=== PATIENT | female | born 1965 | race Caucasian/White ===

== ENCOUNTER 2022-06-30 16:35 | Emergency (ER) | payer BC ==
[~2022-06-30] VITALS: Ht 162.6 cm; Wt 63.5 kg
--- NOTE | 2022-06-30 16:40 | NUR ---
Dr Fish at the bedside for MSE.
[2022-06-30] MEDS ORDERED: ONDANSETRON 4 MG/2 ML VIAL ONE (16:54)
[2022-06-30] MEDS ORDERED: IV NORMAL SALINE 1000 ML BAG IV ONE (17:00)
[2022-06-30] MEDS ORDERED: ONDANSETRON 4 MG/2 ML VIAL IV ONE (17:00)
[2022-06-30 17:04] LABS: MEAN CORPUSCULAR HEMOGLOBIN 24.8 uug (24.7-32.8); MEAN CORPUSCULAR VOLUME 76.8 fL (75.5-95.3); PLATELET COUNT (AUTO) 220 K/uL (179-408)
[2022-06-30 17:17] LABS: BILIRUBIN,DIRECT 0.1 mg/dL (0.0-0.2); BILIRUBIN,TOTAL 0.4 mg/dL (0.2-1.0); CREATININE 0.8 mg/dL (0.6-1.3); POTASSIUM 3.5 mmol/L (3.5-5.1); TOTAL PROTEIN, SERUM 6.6 g/dL (6.4-8.2)
[2022-06-30] MEDS ORDERED: FAMOTIDINE. 20 MG/2 ML VIAL IV ONE ×2 (18:00→18:12)
[2022-06-30] MEDS ORDERED: ONDA4TAB5 PO (18:08)
[2022-06-30] MEDS ORDERED: FAMO-132 PO (18:08)
--- NOTE | 2022-06-30 18:25 | NUR ---
Pt states feeling better and no longer nauseous.
[2022-06-30 18:35] VITALS: BP 110/60
--- NOTE | 2022-06-30 18:35 | NUR ---
IV removed. Catheter intact and site benign. Pressure and 4x4 gauze applied to site. No bleeding noted.
--- NOTE | 2022-06-30 18:37 | NUR ---
IV removed. Catheter intact and site benign. Pressure and 4x4 gauze applied to site. No bleeding noted.
== END 2022-06-30 18:37 | disposition home or self-care (01) ==
LOC: ER 16:35
DX: K52.9 Noninfective gastroenteritis and colitis, unspecified (principal)
CPT/HCPCS: 36415; 83690; 85025; A4663; J2405; J3490; J7040

== ENCOUNTER 2023-01-02 07:08 | Outpatient (CLI) | payer BC, OTHER ==
[~2023-01-02 07:08] MED LIST: FAMO-132 PO; ONDA4TAB5 PO
[2023-01-02 07:36] LABS: HEMATOCRIT 38.1 % (31.2-41.9); MEAN CORPUSCULAR HEMOGLOBIN 25.5 uug (24.7-32.8); MEAN CORPUSCULAR VOLUME 81.4 fL (75.5-95.3); PLATELET COUNT (AUTO) 282 K/uL (179-408)
[2023-01-02 08:26] LABS: BILIRUBIN,TOTAL 0.4 mg/dL (0.2-1.0); CREATININE 0.6 mg/dL (0.6-1.3); MAGNESIUM 2.3 mg/dL (1.8-2.4); PHOSPHOROUS 3.8 mg/dL (2.5-4.9); TOTAL PROTEIN, SERUM 7.2 g/dL (6.4-8.2)
[2023-01-02 08:28] LABS: THYROID STIMULATING HORMONE 2.157 mIU/mL (0.358-3.740)
[2023-01-02 09:06] LABS: URIC ACID 3.6 mg/dL (2.6-6.0)
[2023-01-02 13:24] LABS: *BILIRUBIN,URIN NEGATIVE (NEGATIVE); *BLOOD, URINE NEGATIVE (NEGATIVE); *CLARITY,URINE CLEAR (CLEAR); *COLOR,URINE YELLOW (YELLOW); *KETONES,URINE NEGATIVE (NEGATIVE); *UROBILINOGEN,URINE 0.2 E.U./dl (NORMAL); LEUKOCYTE ESTERASE ,URINE 1+ (NEGATIVE); NITRITE, URINE NEGATIVE (NEGATIVE); UGLUCOSE NEGATIVE (NEGATIVE)
[2023-01-02 14:26] LABS: BACTERIA,URINE FEW /HPF (NONE SEEN); RBC,URINE NONE SEEN /HPF (0-3); SQUAMOUS EPITHELIAL CELL,UR FEW /HPF (NONE SEEN)
== END 2023-01-02 23:59 | disposition home or self-care (01) ==
LOC: LAB 07:08
PROVIDERS: ATTEND Legal Medicine
DX: Z00.00 Encounter for general adult medical examination without abnormal findings (principal); R53.1 Weakness; E11.9 Type 2 diabetes mellitus without complications; E78.00 Pure hypercholesterolemia, unspecified; I10 Essential (primary) hypertension; E55.9 Vitamin D deficiency, unspecified; D64.9 Anemia, unspecified; E03.9 Hypothyroidism, unspecified
CPT/HCPCS: 36415; 82525; 82746; 83550; 83735; 84100; 84207; 84443; 84550; 84630; 85025; 85651; 86140

== ENCOUNTER 2023-07-22 12:35 | Emergency (ER) | payer BC, OTHER ==
[~2023-07-22] VITALS: Ht 162.6 cm; Wt 65.8 kg
[2023-07-22 12:48] VITALS: O2SAT 98
[2023-07-22] MEDS ORDERED: KETOROLAC TROMETHAMINE 15 MG INJ IVP ONE (13:15)
[2023-07-22] MEDS ORDERED: METOCLOPRAMIDE HCL 10 MG/2 ML VIAL IV ONE (13:15)
[2023-07-22] MEDS ORDERED: IV NORMAL SALINE 1000 ML BAG IV ONE (13:15)
[2023-07-22] MEDS ORDERED: KETOROLAC TROMETHAMINE 15 MG INJ ONE (13:22)
[2023-07-22] MEDS ORDERED: METOCLOPRAMIDE HCL 10 MG/2 ML VIAL ONE (13:23)
[2023-07-22 13:48] LABS: BASOPHILS % (AUTO) 0.7 % (0.0-2.0); DIFFERENTIAL COMMENT 0; EOSINOPHILS % (AUTO) 0.8 % (0.0-7.0); HEMATOCRIT 35.7 % (31.2-41.9); HEMOGLOBIN 11.4 g/dL (10.9-14.3); LYMPHOCYTES # (AUTO) 1.3 K/uL (0.8-4.8); MEAN CORPUSCULAR HEMOGLOBIN 25.2 uug (24.7-32.8); MEAN CORPUSCULAR HGB CONC 32 g/dL (32.3-35.6); MEAN CORPUSCULAR VOLUME 79.1 fL (75.5-95.3); MONOCYTES # (AUTO) 0.4 K/uL (0.1-1.30); MONOCYTES % (AUTO) 10.1 % (0.0-11.0); NEUTROPHILS # (AUTO) 2.4 K/uL (1.8-8.9); NEUTROPHILS % (AUTO) 57.4 % (38.5-71.5); PLATELET COUNT (AUTO) 252 K/uL (179-408); RED BLOOD CELL COUNT(AUTO) 4.52 MIL/uL (3.63-4.92); RED CELL DISTRIBUTION WIDTH 16.3 % (12.3-17.7); WHITE BLOOD COUNT (AUTO) 4.2 K/uL (3.8-11.8)
[2023-07-22 13:49] LABS: CALCIUM 8.9 mg/dL (8.5-10.1); CREATININE 0.8 mg/dL (0.6-1.3); POTASSIUM 3.7 mmol/L (3.5-5.1)
[2023-07-22 13:55] LABS: ALBUMIN 3.1 g/dL (3.4-5.0); BILIRUBIN,DIRECT 0.1 mg/dL (0.0-0.2); BILIRUBIN,TOTAL 0.3 mg/dL (0.2-1.0); TOTAL PROTEIN, SERUM 6.4 g/dL (6.4-8.2)
[2023-07-22 14:15] LABS: *BLOOD, URINE NEGATIVE (NEGATIVE); *CLARITY,URINE CLEAR (CLEAR); *COLOR,URINE YELLOW (YELLOW); *KETONES,URINE NEGATIVE (NEGATIVE); *PROTEIN,URINE NEGATIVE (NEGATIVE); *UROBILINOGEN,URINE 0.2 E.U./dl (NORMAL); LEUKOCYTE ESTERASE ,URINE NEGATIVE (NEGATIVE); NITRITE, URINE NEGATIVE (NEGATIVE); PH,URINE 5.5 (5.0-8.0); UGLUCOSE NEGATIVE (NEGATIVE)
[2023-07-22 14:20] LABS: *BILIRUBIN,URIN 1+ (NEGATIVE)
[2023-07-22 14:34] LABS: BACTERIA,URINE FEW /HPF (NONE SEEN); SQUAMOUS EPITHELIAL CELL,UR FEW /HPF (NONE SEEN); WBC,URINE 0-3 /HPF (0-3)
[2023-07-22 14:35] LABS: MUCUS,URINE MODERATE /LPF (0-FEW)
[2023-07-22] MEDS ORDERED: CIPR-262 PO (14:36)
[2023-07-22] MEDS ORDERED: METR500T PO (14:36)
== END 2023-07-22 14:49 | disposition home or self-care (01) ==
LOC: ER 12:37
DX: K90.2 Blind loop syndrome, not elsewhere classified (principal); Z79.2 Long term (current) use of antibiotics; Z79.899 Other long term (current) drug therapy
CPT/HCPCS: 99285; 74176; 96374; 96361; 96375; 80076; 80048; 81001; 83690; 85025; 36415; J1885; J2765; J7040; A4663

== ENCOUNTER 2023-09-14 07:16 | Day surgery (SDC) | payer BC, OTHER ==
[~2023-09-14 07:16] MED LIST changes: +CIPR-262 PO; +METR500T PO
[2023-09-14 11:50] VITALS: TEMP 97.9
== END 2023-09-14 11:50 | disposition home or self-care (01) ==
LOC: DS 07:16
PROVIDERS: ATTEND Internal Medicine Gastroenterology
DX: Z12.11 Encounter for screening for malignant neoplasm of colon (principal); K64.8 Other hemorrhoids; K21.9 Gastro-esophageal reflux disease without esophagitis; K63.89 Other specified diseases of intestine; K31.89 Other diseases of stomach and duodenum; K29.70 Gastritis, unspecified, without bleeding; Z79.899 Other long term (current) drug therapy; Z90.49 Acquired absence of other specified parts of digestive tract; Z90.710 Acquired absence of both cervix and uterus; Z98.890 Other specified postprocedural states
CPT/HCPCS: 43239; 45378; 88305; 88313; 88342; J7120; A4663

== ENCOUNTER 2024-02-28 06:44 | Outpatient (CLI) | payer BC, OTHER ==
[2024-02-28 08:45] LABS: *BILIRUBIN,URIN NEGATIVE (NEGATIVE); *BLOOD, URINE NEGATIVE (NEGATIVE); *CLARITY,URINE CLEAR (CLEAR); *COLOR,URINE YELLOW (YELLOW); *KETONES,URINE NEGATIVE (NEGATIVE); *PROTEIN,URINE NEGATIVE (NEGATIVE); *UROBILINOGEN,URINE 0.2 E.U./dl (NORMAL); LEUKOCYTE ESTERASE ,URINE NEGATIVE (NEGATIVE); NITRITE, URINE NEGATIVE (NEGATIVE); PH,URINE 5.5 (5.0-8.0); UGLUCOSE NEGATIVE (NEGATIVE)
[2024-02-28 08:57] LABS: BASOPHILS # (AUTO) 0.1 K/UL (0.0-0.2); BASOPHILS % (AUTO) 0.9 % (0.0-2.0); EOSINOPHILS # (AUTO) 0.1 K/uL (0.0-0.7); EOSINOPHILS % (AUTO) 1.1 % (0.0-7.0); HEMOGLOBIN 11.3 g/dL (10.9-14.3); LYMPHOCYTES % (AUTO) 30.3 % (20.5-51.5); MEAN CORPUSCULAR HEMOGLOBIN 23.4 uug (24.7-32.8); MEAN CORPUSCULAR HGB CONC 31 g/dL (32.3-35.6); MEAN CORPUSCULAR VOLUME 74.6 fL (75.5-95.3); MONOCYTES # (AUTO) 0.4 K/uL (0.1-1.30); MONOCYTES % (AUTO) 6.6 % (0.0-11.0); NEUTROPHILS # (AUTO) 4.1 K/uL (1.8-8.9); NEUTROPHILS % (AUTO) 61.1 % (38.5-71.5); PLATELET COUNT (AUTO) 269 K/uL (179-408); RED BLOOD CELL COUNT(AUTO) 4.83 MIL/uL (3.63-4.92); RED CELL DISTRIBUTION WIDTH 16.1 % (12.3-17.7); WHITE BLOOD COUNT (AUTO) 6.7 K/uL (3.8-11.8)
[2024-02-28 09:35] LABS: THYROID STIMULATING HORMONE 2.074 mIU/mL (0.358-3.740)
[2024-02-28 10:11] LABS: BILIRUBIN,TOTAL 0.3 mg/dL (0.2-1.0); CALCIUM 9.3 mg/dL (8.5-10.1); CREATININE 0.7 mg/dL (0.6-1.3); POTASSIUM 3.9 mmol/L (3.5-5.1); TOTAL PROTEIN, SERUM 7.9 g/dL (6.4-8.2); URIC ACID 3.9 mg/dL (2.6-6.0)
[2024-02-29 08:06] LABS: ESTRADIOL <5.0 pg/mL (.); FOLLICLE STIMULATION HORMONE 46.3 mIU/mL (.); LUTEINIZING HORMONE 26.1 mIU/mL (.); PROLACTIN 5.2 ng/mL (3.6-25.2)
[2024-02-29 09:10] LABS: FOLATE (FOLIC ACID), SERUM 19.8 ng/mL (>3.0)
[2024-03-04 14:08] LABS: *VITAMIN D 25-OH VIT D 38 ng/mL (.); *VITAMIN D 25-OH, D2 <1.0 ng/mL (.); *VITAMIN D 25-OH, D3 38 ng/mL (.)
== END 2024-02-28 23:59 | disposition home or self-care (01) ==
LOC: LAB 06:44
PROVIDERS: ATTEND Legal Medicine
DX: Z00.00 Encounter for general adult medical examination without abnormal findings (principal); E78.00 Pure hypercholesterolemia, unspecified; E11.22 Type 2 diabetes mellitus with diabetic chronic kidney disease; I12.9 Hypertensive chronic kidney disease with stage 1 through stage 4 chronic kidney disease, or unspecified chronic kidney disease; N18.9 Chronic kidney disease, unspecified; E03.9 Hypothyroidism, unspecified; D64.9 Anemia, unspecified; E55.9 Vitamin D deficiency, unspecified
CPT/HCPCS: 36415; 82670; 82746; 83001; 83002; 84146; 84443; 84550; 85025

== ENCOUNTER 2024-04-15 08:04 | Emergency (ER) | payer BC, OTHER ==
[~2024-04-15] VITALS: Ht 162.6 cm; Wt 65.8 kg
[2024-04-15] MEDS ORDERED: PHENAZOPYRIDINE HCL 100 MG TABLET ONE (08:46)
[2024-04-15] MEDS: PHENAZOPYRIDINE HCL 100 MG TABLET PO ONE (08:49)
[2024-04-15 09:28] LABS: BASOPHILS % (AUTO) 0.7 % (0.0-2.0); EOSINOPHILS % (AUTO) 0.7 % (0.0-7.0); HEMATOCRIT 34.6 % (31.2-41.9); HEMOGLOBIN 10.9 g/dL (10.9-14.3); LYMPHOCYTES # (AUTO) 1.2 K/uL (0.8-4.8); LYMPHOCYTES % (AUTO) 15.8 % (20.5-51.5); MEAN CORPUSCULAR HEMOGLOBIN 23.4 uug (24.7-32.8); MEAN CORPUSCULAR HGB CONC 32 g/dL (32.3-35.6); MEAN CORPUSCULAR VOLUME 74.2 fL (75.5-95.3); MONOCYTES # (AUTO) 0.8 K/uL (0.1-1.30); MONOCYTES % (AUTO) 10.2 % (0.0-11.0); NEUTROPHILS # (AUTO) 5.5 K/uL (1.8-8.9); NEUTROPHILS % (AUTO) 72.6 % (38.5-71.5); PLATELET COUNT (AUTO) 241 K/uL (179-408); RED BLOOD CELL COUNT(AUTO) 4.66 MIL/uL (3.63-4.92); RED CELL DISTRIBUTION WIDTH 16.5 % (12.3-17.7); WHITE BLOOD COUNT (AUTO) 7.5 K/uL (3.8-11.8)
[2024-04-15 09:40] LABS: CALCIUM 9.1 mg/dL (8.5-10.1); CARBON DIOXIDE 27 mmol/L (21-32); CHLORIDE 104 mmol/L (98-107); CREATININE 0.7 mg/dL (0.6-1.3); GLUCOSE 96 mg/dL (74-106); POTASSIUM 4.4 mmol/L (3.5-5.1); SODIUM SERUM 138 mmol/L (136-145); UREA NITROGEN, BLOOD 8 mg/dL (7-18)
[2024-04-15 09:43] LABS: *BILIRUBIN,URIN NEGATIVE (NEGATIVE); *BLOOD, URINE NEGATIVE (NEGATIVE); *CLARITY,URINE CLEAR (CLEAR); *COLOR,URINE YELLOW (YELLOW); *KETONES,URINE NEGATIVE (NEGATIVE); *PROTEIN,URINE NEGATIVE (NEGATIVE); *URINE HCG, QUAL NEGATIVE (NEGATIVE); *UROBILINOGEN,URINE 0.2 E.U./dl (NORMAL); LEUKOCYTE ESTERASE ,URINE NEGATIVE (NEGATIVE); NITRITE, URINE NEGATIVE (NEGATIVE); PH,URINE 5.5 (5.0-8.0); UGLUCOSE NEGATIVE (NEGATIVE)
[2024-04-15 09:46] LABS: ALANINE AMINOTRANSFERASE 18 U/L (14-59); ALBUMIN 3.3 g/dL (3.4-5.0); ALKALINE PHOSPHATASE 96 U/L (50-136); ASPARTATE AMINOTRANSFERASE 10 U/L (15-37); BILIRUBIN,DIRECT < 0.1 mg/dL (0.0-0.2); BILIRUBIN,TOTAL 0.2 mg/dL (0.2-1.0)
[2024-04-15] MEDS ORDERED: DICY10CA13 PO (10:05)
[2024-04-15] MEDS ORDERED: FERR324T17 PO (10:05)
[2024-04-15 10:36] VITALS: BP 133/79; TEMP 97.9; O2SAT 100
== END 2024-04-15 10:37 | disposition home or self-care (01) ==
LOC: ER 08:04
DX: D50.9 Iron deficiency anemia, unspecified (principal); R10.2 Pelvic and perineal pain; Z79.899 Other long term (current) drug therapy
CPT/HCPCS: 36415; 84703; 85025; A4606; A4663

== ENCOUNTER 2025-05-14 10:57 | Emergency (ER) | payer BC, OTHER ==
[~2025-05-14] VITALS: Ht 162.6 cm; Wt 63.5 kg
[~2025-05-14 10:57] MED LIST changes: +DICY10CA13 PO; +FERR324T17 PO
[2025-05-14 11:32] LABS: PLATELET COUNT (AUTO) 226 K/uL (179-408); RED BLOOD CELL COUNT(AUTO) 4.78 MIL/uL (3.63-4.92); RED CELL DISTRIBUTION WIDTH 17.4 % (12.3-17.7); WHITE BLOOD COUNT (AUTO) 5.8 K/uL (3.8-11.8)
[2025-05-14] MEDS ORDERED: ACETAMINOPHEN 500 MG TABLET ONE (11:38)
[2025-05-14] MEDS ORDERED: LORAZEPAM 0.5 MG TABLET ONE (11:39)
[2025-05-14 11:42] LABS: CREATININE 0.6 mg/dL (0.6-1.3); SODIUM SERUM 141.0 mmol/L (136-145); UREA NITROGEN, BLOOD 12.0 mg/dL (7-18)
[2025-05-14] MEDS: ACETAMINOPHEN 500 MG TABLET PO ONE (11:43)
[2025-05-14] MEDS: LORAZEPAM 0.5 MG TABLET PO ONE (11:43)
[2025-05-14 11:48] LABS: ASPARTATE AMINOTRANSFERASE 19.0 U/L (15-37); TOTAL PROTEIN, SERUM 7.0 g/dL (6.4-8.2)
[2025-05-14] MEDS ORDERED: LORA0.5T48 PO (13:37)
[2025-05-14 15:16] VITALS: BP 111/79; O2SAT 99
== END 2025-05-14 15:26 | disposition home or self-care (01) ==
LOC: ER 15:21
DX: R00.2 Palpitations (principal); R07.2 Precordial pain; Z88.7 Allergy status to serum and vaccine; Z98.84 Bariatric surgery status
CPT/HCPCS: 36415; 83735; 84484; 85025; A4663; A9150

== ENCOUNTER 2025-09-26 07:42 | Emergency (ER) | payer BC, OTHER ==
[~2025-09-26] VITALS: Ht 162.6 cm; Wt 63.0 kg
[~2025-09-26 07:42] MED LIST changes: -CIPR-262 PO; -DICY10CA13 PO; -FAMO-132 PO; -FERR324T17 PO; +LORA0.5T48 PO; -METR500T PO; -ONDA4TAB5 PO
[2025-09-26 07:45] VITALS: BP 144/79
[2025-09-26] MEDS ORDERED: HYDR-3972 PO (08:14)
[2025-09-26] MEDS ORDERED: CIPR-262 PO (08:14)
[2025-09-26] MEDS ORDERED: CIPROFLOXACIN HCL 250 MG TABLET ONE (08:17)
[2025-09-26 08:20] LABS: *BILIRUBIN,URIN NEGATIVE (NEGATIVE); *BLOOD, URINE NEGATIVE (NEGATIVE); *CLARITY,URINE CLEAR (CLEAR); *COLOR,URINE YELLOW (YELLOW); *KETONES,URINE NEGATIVE (NEGATIVE); *PROTEIN,URINE NEGATIVE (NEGATIVE); *UROBILINOGEN,URINE 0.2 E.U./dl (NORMAL); LEUKOCYTE ESTERASE ,URINE NEGATIVE (NEGATIVE); NITRITE, URINE NEGATIVE (NEGATIVE); UGLUCOSE NEGATIVE (NEGATIVE)
[2025-09-26] MEDS: CIPROFLOXACIN HCL 250 MG TABLET PO ONE (08:20)
[2025-09-26 08:25] VITALS: BP 144/79; TEMP 97.3; O2SAT 100
== END 2025-09-26 08:26 | disposition home or self-care (01) ==
LOC: ER 07:42
DX: N12 Tubulo-interstitial nephritis, not specified as acute or chronic (principal); F17.200 Nicotine dependence, unspecified, uncomplicated; F41.9 Anxiety disorder, unspecified; Z87.440 Personal history of urinary (tract) infections; Z88.7 Allergy status to serum and vaccine; Z90.710 Acquired absence of both cervix and uterus; Z98.84 Bariatric surgery status
CPT/HCPCS: 87086; A4606; A4663